=== PATIENT | female | born 2000 | race Caucasian/White ===

== ENCOUNTER 2022-07-11 10:30 | Inpatient (IN) | payer OTHER, SELFPAY ==
[2022-07-12] MEDS ORDERED: Ibuprofen 800 MG TAB PO PRN (00:54)
[2022-07-12] MEDS ORDERED: hydrALAZINE 20 MG/ML VIAL SLOW IVP PRN ×2 (00:54→21:19)
[2022-07-12] MEDS ORDERED: Butorphanol Tartrate 1 MG/ML VIAL SLOW IVP PRN (00:54)
[2022-07-12] MEDS ORDERED: Acetaminophen 500 MG TAB PO PRN (00:54)
[2022-07-12] MEDS ORDERED: Carboprost 250 MCG/ML AMP IM PRN (00:54)
[2022-07-12] MEDS ORDERED: Methylergonovine 0.2 MG/ML VIAL IM PRN (00:54)
[2022-07-12] MEDS ORDERED: Promethazine HCl 25 MG/ML VIAL IM PRN ×2 (00:54→08:58)
[2022-07-12] MEDS ORDERED: Diphenoxylate HCl/Atropine Tablet PO PRN ×2 (00:54)
[2022-07-12] MEDS ORDERED: NS w/ Oxytocin 30 units 500 ML IV SCH ×2 (00:54)
[2022-07-12] MEDS ORDERED: HYDROcodone/Acetaminophen 5/325 mg Tablet PO PRN ×2 (00:54)
[2022-07-12] MEDS ORDERED: Lidocaine 1% (PF) 30 ML VIAL SC PRN (00:54)
[2022-07-12] MEDS ORDERED: Ondansetron PF 4 MG/2 ML Vial IVP PRN ×2 (00:54→08:58)
[2022-07-12] MEDS ORDERED: Misoprostol 200 MCG TAB PR PRN (00:54)
[2022-07-12 01:11] VITALS: BMI 33.6
[2022-07-12] MEDS: Misoprostol 100 MCG TAB VAG SCH ×4 (01:24→16:58)
[2022-07-12 01:26] LABS: Hemoglobin 9.1 g/dL (12.0-15.5); Mean Corpuscular HGB CONC 31.1 g/dL (32.0-36.0); Mean Corpuscular Hemoglobin 21.7 pg (27.0-33.0); Mean Corpuscular Volume 69.8 fl (81.6-98.3); Mean Platelet Volume 10.4 fl (7.4-10.4); Platelet Count 267 10x3/uL (150-450); RBC Distribution Width 16.8 % (11.5-14.5); White Blood Cell (WBC) Count 12.6 10x3/uL (3.5-10.5)
[2022-07-12 02:03] LABS: Syphilis Antibody Nonreactive (Nonreactive); Syphilis Antibody Index 0.05 S/CO (<1.00 Non-Reactive)
[2022-07-12 02:07] LABS: HBSAg Index 0.13 S/CO (0-0.99); Hep B Surf Ag Non-Reactive S/CO (NonReactive)
[2022-07-12 02:56] LABS: SARS-CoV-2 NAA Rapid Test Not Detected (NotDetected)
[2022-07-12 02:58] LABS: Glucose 158 mg/dL (70-105)
[2022-07-12] MEDS: Lactated Ringer's 1,000 ML IV SCH ×5 (07:32→17:25)
[2022-07-12] MEDS ORDERED: Bupivacaine PF 0.5% 30 ML VIAL ONE (08:00)
[2022-07-12] MEDS ORDERED: Bupivacaine 0.25% HCL 30 ML VIAL ONE (08:00)
[2022-07-12] MEDS ORDERED: HumaLOG 300 UNITS/3 ML VIAL SC PRN (08:03)
[2022-07-12] MEDS ORDERED: Dextrose 5% in Water 1,000 ML IV PRN (08:03)
[2022-07-12] MEDS ORDERED: Dextrose 50% Abboject 50 ML SYRINGE SLOW IVP PRN (08:03)
[2022-07-12] MEDS ORDERED: Fentanyl 2 mcg/Bup 0.1% Cadd 100 ML ONE (08:15)
[2022-07-12] MEDS ORDERED: ePHEDrine Sulfate 50 MG/10 ML VIAL SLOW IVP PRN (08:58)
[2022-07-12] MEDS ORDERED: Naloxone HCl 0.4 mg/ml Vial IVP PRN ×2 (08:58)
[2022-07-12] MEDS ORDERED: Lactated Ringer's 500 ML IV PRN (08:58)
[2022-07-12] MEDS ORDERED: Moisturizing Cream (Eucerin) 113 GM JAR TOP PRN (08:58)
[2022-07-12] MEDS ORDERED: diphenhydrAMINE 50 MG/ML VIAL IVP PRN (08:58)
[2022-07-12] MEDS ORDERED: Acetaminophen 325 MG TAB PO PRN (08:58)
[2022-07-12] MEDS ORDERED: Communication Order-Pharmacy FS SCH (09:00)
[2022-07-12] MEDS ORDERED: Fentanyl 2 mcg/Bupivacaine 0.1% Cassette 100 ML EPIDURAL SCH (09:00)
[2022-07-12] MEDS: Acetaminophen 500 MG TAB PO PRN ×2 (17:02→21:46)
[2022-07-12] MEDS: Ampicillin 2 GM in Sodium Chloride 0.9% 100 ML IVPB SCH (18:20)
[2022-07-12] MEDS ORDERED: Ampicillin 2 GM VIAL ONE (18:21)
[2022-07-12] MEDS: Gentamicin Sulfate 80 MG in Premix Bag 1 BAG IVPB SCH (19:17)
[2022-07-12] MEDS ORDERED: Lidocaine 1% (PF) 30 ML VIAL ONE (20:46)
[2022-07-12] MEDS ORDERED: Misoprostol 200 MCG TAB ONE (21:03)
[2022-07-12] MEDS ORDERED: Tranexamic Acid 1,000 MG/10 ML VIAL ONE (21:03)
[2022-07-12] MEDS ORDERED: Methylergonovine 0.2 MG/ML VIAL ONE (21:05)
[2022-07-12] MEDS ORDERED: Carboprost 250 MCG/ML AMP ONE (21:05)
[2022-07-12] MEDS ORDERED: traMADol HCl 50 MG TAB PO PRN (21:19)
[2022-07-12] MEDS ORDERED: Benzocaine-Menthol 82.5 ML CAN TOP PRN (21:19)
[2022-07-12] MEDS ORDERED: Bisacodyl 10 MG SUPP PR PRN (21:19)
[2022-07-12] MEDS ORDERED: Boostrix 0.5 ML (Tdap) VIAL (>/=7 yrs of age) IM ONE (21:19)
[2022-07-12] MEDS ORDERED: Milk Of Magnesia 30 ML UDCUP PO PRN (21:19)
[2022-07-12] MEDS ORDERED: Preparation H Ointment 28 GM TUBE PR PRN (21:19)
[2022-07-12] MEDS ORDERED: Lanolin Ointment 7 GM TUBE TOP PRN (21:19)
[2022-07-13] MEDS: Ampicillin 2 GM in Sodium Chloride 0.9% 100 ML IVPB SCH ×4 (00:30→19:02)
[2022-07-13] MEDS: Ibuprofen 800 MG TAB PO SCH ×4 (00:39→21:29)
[2022-07-13] MEDS: Gentamicin Sulfate 80 MG in Premix Bag 1 BAG IVPB SCH ×3 (03:37→19:42)
[2022-07-13] MEDS: Misoprostol 100 MCG TAB VAG SCH (04:09)
[2022-07-13 04:58] LABS: Hemoglobin 8.6 g/dL (12.0-15.5); Mean Corpuscular HGB CONC 31.3 g/dL (32.0-36.0); Mean Corpuscular Hemoglobin 21.6 pg (27.0-33.0); Mean Corpuscular Volume 69.1 fl (81.6-98.3); Mean Platelet Volume 10.3 fl (7.4-10.4); Platelet Count 236 10x3/uL (150-450); Red Blood Cell (RBC) Count 3.98 10x6/uL (3.90-5.03); White Blood Cell (WBC) Count 30.9 10x3/uL (3.5-10.5)
[2022-07-13] MEDS: Docusate 100 MG CAP PO SCH ×2 (07:57→21:29)
[2022-07-13] MEDS: Ferrous Sulfate 325 MG TAB PO SCH ×2 (07:57→18:04)
[2022-07-14] MEDS: Ampicillin 2 GM in Sodium Chloride 0.9% 100 ML IVPB SCH ×3 (00:26→13:13)
[2022-07-14] MEDS: Gentamicin Sulfate 80 MG in Premix Bag 1 BAG IVPB SCH ×2 (03:14→12:04)
[2022-07-14] MEDS: Ibuprofen 800 MG TAB PO SCH (06:24)
[2022-07-14 07:43] VITALS: BP 109/67; TEMP 97.7
[2022-07-14] MEDS: Ferrous Sulfate 325 MG TAB PO SCH (08:17)
[2022-07-14] MEDS: Docusate 100 MG CAP PO SCH (08:17)
== END 2022-07-14 13:35 | disposition home or self-care (01) | DRG 805 ==
LOC: CSHLD 07-12 00:17 → CSHPED 07-12 23:20
PROVIDERS: ADMIT Obstetrics & Gynecology; ATTEND Obstetrics & Gynecology
PROC: 10E0XZZ Delivery of Products of Conception, External Approach (ICD-10-PCS; principal; 2022-07-12)
PROC: 0KQM0ZZ Repair Perineum Muscle, Open Approach (ICD-10-PCS; 2022-07-12)
PROC: 3E033VJ Introduction of Other Hormone into Peripheral Vein, Percutaneous Approach (ICD-10-PCS; 2022-07-12)
DX: O24.429 Gestational diabetes mellitus in childbirth, unspecified control (principal); O41.1230 Chorioamnionitis, third trimester, not applicable or unspecified; Z37.0 Single live birth; O70.1 Second degree perineal laceration during delivery; Z3A.39 39 weeks gestation of pregnancy; O62.2 Other uterine inertia
CPT/HCPCS: 36415; 36416; 51702; 82947; 85027; 86780; 86850; 86900; 86901; 87340; J0290; J1580; J2210; J2405; J2590; J3490; J7120; S0020; U0002